=== PATIENT | male | born 1990 | race Caucasian/White ===

== ENCOUNTER 2017-02-16 14:47 | Emergency (ER) | payer OTHER ==
--- NOTE | ~2017-02-16 | CT71 ---
[facility] A Service of [facility] RADIOLOGY TEXT RESULTS PATIENT: PATRICK BOND LOCATION: SED : 91 UNIT #: [id number] AGE: [address]: Amadou Guillen MD SEX: M ORDER DR: [id number] [place] [id number] E MR#: [id number] Acc #: [id number] NAME: PATRICK BOND. : 1990 SEX: M STUDY DATE/TIME: 02/16/2017 15:16 UNIT: SED ROOM: STUDY DESCRIPTION: CT Head Wo Contrast Attending Physician: Amadou Guillen M.D. Ordering Physician: Amaduo Guillen M.D. MEDICAL IMAGING REPORT This report is preliminary unless electronic signature is present. EXAM CT head without contrast 02/16/2017 COMPARISON None. HISTORY Question possible concussion and dizziness today. Patient hit head at 04:30 p.m. yesterday with left-sided forehead pain. TECHNIQUE This CT exam was performed with one or more of the following radiation dose reduction techniques: automatic exposure control, adjustment of mA and/or kV according to patient size, and iterative reconstruction. FINDINGS CT of the head was obtained without contrast. No acute intracranial hemorrhage, space-occupying mass, mass effect, midline shift or hydrocephalus. Paranasal sinuses, mastoid air cells are well-aerated. Orbits and the ocular structures and bones do not demonstrate any significant abnormality. IMPRESSION No demonstrable significant intracranial abnormality. Dictated by... Valentina Ken M.D. THIS IS AN ELECTRONICALLY VERIFIED REPORT [facility] A Service of [facility] RADIOLOGY TEXT RESULTS PATIENT: PATRICK BOND LOCATION: SED : 91 UNIT #: [id number] AGE: [address]: Amadou Guillen MD SEX: M ORDER DR: Valentina Ken M.D. at 02/18/2017 3:11 PM CPR/pcl TD: 02/16/2017 18:06 JOB #: [id number] MEDICAL IMAGING REPORT Page 1 of 1
[~2017-02-16 14:47] MED LIST: LEVOXYL0.137 MG PO
== END 2017-02-16 16:33 | disposition home or self-care (01) ==
LOC: SED 14:47
DX: S09.90XA Unspecified injury of head, initial encounter (principal); S00.83XA Contusion of other part of head, initial encounter; E03.9 Hypothyroidism, unspecified; Z79.899 Other long term (current) drug therapy; W22.8XXA Striking against or struck by other objects, initial encounter; Y93.89 Activity, other specified; Y92.410 Unspecified street and highway as the place of occurrence of the external cause
CPT/HCPCS: 70450; 99284